=== PATIENT | female | born 1955 | race Caucasian/White ===

== ENCOUNTER → 2022-05-07 09:34 | Outpatient (CLI) | payer MEDICARE, OTHER, SELFPAY ==
--- NOTE | ~2022-05-07 | MR_ITS ---
EXAMINATION: MR knee RT wo con DATE: 05/07/2022 10:05 INDICATION: Right knee pain TECHNIQUE: Magnetic resonance imaging (MRI) of the right knee was performed without intravenous contr ast. Sequences included coronal PD-weighted FSE, coronal PD-weighted FS FSE, sagittal T2-weighted FS E, sagittal PD-weighted FS FSE and axial PD weighted fat saturated FSE. COMPARISON: None. FINDINGS: Medial compartment: Complex tear at the lateral side of the posterior root of the medial meniscus with a primary full-thi ckness radial tear plane and secondary tearing extending a short distance into more more medial poste rior horn. There is increased intrasubstance signal extending to the posterior body but which does no t appears to contact the articular surface which could represent mucoid degeneration. Partial-thickne ss chondral ulceration and deep chondral fissuring with underlying edema-like marrow signal change, c ystlike change and small central subchondral osteophyte along the lateral aspect of the anterior weig htbearing medial femoral condyle. Remaining cartilage appears relatively preserved. Lateral compartment: Lateral meniscus is normal. Mild chondral surface regularity along the medial aspect of the anterior weightbearing lateral femoral condyle and the central aspect. Lateral tibial plateau. Deep chondral f issure. Degenerative subchondral changes at the medial aspect of the lateral tibial plateau along the shoulder the intercondylar eminence. Patellofemoral compartment: Deep chondral ulceration and fissuring at the lateral patellar facet and apical ridge with small amou nt of underlying edema-like marrow signal change. Less severe partial thickness chondral fissuring at the medial facet. Deep chondral fissuring with minimal underlying cortical irregularity and edema-li ke signal change at the inferolateral aspect of the medial trochlea Ligaments and tendons: Anterior and posterior cruciate ligaments are normal. The medial collateral ligament and fibular ramy ateral ligament complex are normal. The extensor mechanism is normal. The visualized medial and later al hamstring tendons as well as the iliotibial band are normal. Fluid: Physiologic amount of fluid in the joint space. No loose osteochondral bodies identified. Osseous/other: Normal marrow signal separate previous noted small regions of degenerative subarticular signal change s. No fracture or pathologic marrow replacing process. IMPRESSION: 1. Complex tear at the posterior horn of the medial meniscus including full-thickness radial componen t. 2. Mild tricompartmental osteoarthritis with regions of high-grade chondromalacia in the medial and p atellofemoral compartments and moderate grade chondral malacia in the lateral compartment. Reviewed, dictated and finalized at location A. IMPRESSION: 1. Complex tear at the posterior horn of the medial meniscus including full-thi ckness radial component. 2. Mild tricompartmental osteoarthritis with regions of high-grade chondromalac ia in the medial and patellofemoral compartments and moderate grade chondral ma lacia in the lateral compartment.
== END ==
PROVIDERS: PCP Nurse Practitioner Family; Visit Provider Orthopaedic Surgery
DX: M25.561 Pain in right knee (principal); S83.231A Complex tear of medial meniscus, current injury, right knee, initial encounter; M17.11 Unilateral primary osteoarthritis, right knee; M94.261 Chondromalacia, right knee
CPT/HCPCS: 73721

== ENCOUNTER 2022-11-25 00:30 | Day surgery (SDC) | payer MEDICARE, SELFPAY ==
[2022-11-19 08:55] VITALS: BMI 29.9
[2022-11-25 07:16] VITALS: BP 139/84; PULSE 73; RESP 16; TEMP 36.4; O2SAT 100
--- NOTE | 2022-11-25 07:27 | WPDANESEPPF ---
Anes - Initial Pre Proc Eval Procedure: Operation Date: 11/25/22 08:30 Proposed Procedures p Colonoscopy - Edwin Dsouza MD Date/Time: 11/25/22 07:27 Surgeon: Edwin Dsouza MD Pre Op Diagnosis: hemorrhage anus/rectum Patient Data Age: 67 Gender: F Height: 1.68 m Weight: 84.6 kg Last Vital Signs Temp 36.4 C 11/25/22 07:16 Pulse 73 11/25/22 07:16 Resp 16 11/25/22 07:16 BP 139/84 11/25/22 07:16 Pulse Ox 100 11/25/22 07:16 O2 Del Method Room Air 11/25/22 07:16 Allergies Allergy/AdvReac Type Severity Reaction Status Date / Time No Known Allergies Allergy Verified 11/25/22 07:13 Home Medications Medication Instructions Recorded Confirmed Type aspirin 81 mg tablet,delayed 81 mg PO DAILY 07/22/20 11/25/22 History release calcium carbonate 600 mg-vitamin 1 cap PO DAILY 07/22/20 11/25/22 History D3 12.5 mcg (500 unit) capsule (Calcium 600 with Vitamin D3) fluticasone propionate 50 1 spray intranasal DAILY 07/22/20 11/25/22 History mcg/actuation nasal spray,suspension lisinopril 2.5 mg tablet 2.5 mg PO DAILY 07/22/20 11/25/22 History metoprolol tartrate 25 mg tablet 12.5 mg PO BID 07/22/20 11/25/22 History clopidogrel 75 mg tablet 75 mg PO DAILY 09/01/21 11/25/22 History ezetimibe 10 mg tablet 10 mg PO DAILY 09/01/21 11/25/22 History meloxicam 15 mg tablet 15 mg PO DAILY 10/14/22 11/25/22 History atorvastatin 80 mg tablet 40 mg PO EVERY OTHER DAY 11/19/22 11/25/22 History atorvastatin 80 mg tablet 80 mg PO EVERY OTHER DAY 11/19/22 11/25/22 History Patient hx anesthesia problems: none Family hx anesthesia problems: none Results Review: All pre-operative results and documents have been reviewed as part of the pre-operative evaluation. [facility] Past Medical History Medical History (Updated 11/25/22 @ 07:38 by Facundo Castillo DO) History of heart attack 2020 Hyperlipidemia Hypertension x2 Vaginal delivery Surgical History Surgical History (Updated 11/25/22 @ 07:38 by Facundo Castillo DO) H/O hernia repair H/O knee surgery History of colposcopy Hx of heart artery stent [id number] S/P bilateral hip replacements Family History Family History Other Family history of elevated blood lipids Hypertension Social History Social History (Updated 10/14/22 @ 10:23 by Charleen Norton CMA) Smoking status: Never smoker Second hand tobacco smoke exposure: No Alcohol intake: current Drinks per week: 10 Alcohol use details: GLASSES WINE Substance use: never Substance use type: does not use Lack of Transportation: No Lack of Food: Never True Current Housing: I Have Housing Concerned About Future Housing: No Difficulty Paying Gas/Electric Bills: No Difficulty Paying for Meds: No Currently Unemployed: No Education: Master's Degree or Higher Living arrangements: with family Spiritual care concerns: No Anes - Eval Final PreProcedure Day of Procedure 11/25/22 07:27 Patient weight: obese Heart: regular rate and rhythm Lungs: clear to auscultation Airway: Mallampati scale class II Neurological: alert and oriented Last oral intake: >/= 8 hours ASA classification: III Emergent: no Anesthetic plan: proceed Anesthesia type and monitoring: general GIVS and standard monitoring Results Review: All pre-operative results and documents have been reviewed as part of the pre-operative evaluation. Informed Consent: The patient's anesthetic plan and its attendant risks and benefits were discussed with the patient/family/POA. Questions were solicited and answers provided to the satisfaction of the patient/family/POA.
--- NOTE | 2022-11-25 07:27 | PM.HPGS ---
History of Present Illness History of Present Illness Consent: Risks, benefits, and alternatives have been discussed and questions answered. Patient agrees to proceed with procedure. Chief complaint: hemorrhage anus/rectum Narrative: Winston Samuels is a 67 year old female Presents for colonoscopy. Patient has had intermittent bright red blood per rectum for the last several months. She denies any associated abdominal pain. Bleeding has been less frequent over recent weeks. Patient does have a prior colonoscopy in 2016. Review of Systems Review of Systems: Review of systems noncontributory. [facility] Past Medical History Medical History Hyperlipidemia Hypertension x2 Vaginal delivery Surgical History Surgical History H/O hernia repair H/O knee surgery History of colposcopy Hx of heart artery stent S/P bilateral hip replacements Family History Family History Other Family history of elevated blood lipids Hypertension Social History Social History (Updated 10/14/22 @ 10:23 by Charleen Norton CMA) Smoking status: Never smoker Second hand tobacco smoke exposure: No Alcohol intake: current Drinks per week: 10 Alcohol use details: GLASSES WINE Substance use: never Substance use type: does not use Lack of Transportation: No Lack of Food: Never True Current Housing: I Have Housing Concerned About Future Housing: No Difficulty Paying Gas/Electric Bills: No Difficulty Paying for Meds: No Currently Unemployed: No Education: Master's Degree or Higher Living arrangements: with family Spiritual care concerns: No Meds Home Medications and Allergies Home Medications Medication Instructions Recorded Confirmed Type aspirin 81 mg tablet,delayed 81 mg PO DAILY 07/22/20 11/25/22 History release calcium carbonate 600 mg-vitamin 1 cap PO DAILY 07/22/20 11/25/22 History D3 12.5 mcg (500 unit) capsule (Calcium 600 with Vitamin D3) fluticasone propionate 50 1 spray intranasal DAILY 07/22/20 11/25/22 History mcg/actuation nasal spray,suspension lisinopril 2.5 mg tablet 2.5 mg PO DAILY 07/22/20 11/25/22 History metoprolol tartrate 25 mg tablet 12.5 mg PO BID 07/22/20 11/25/22 History clopidogrel 75 mg tablet 75 mg PO DAILY 09/01/21 11/25/22 History ezetimibe 10 mg tablet 10 mg PO DAILY 09/01/21 11/25/22 History meloxicam 15 mg tablet 15 mg PO DAILY 10/14/22 11/25/22 History atorvastatin 80 mg tablet 40 mg PO EVERY OTHER DAY 11/19/22 11/25/22 History atorvastatin 80 mg tablet 80 mg PO EVERY OTHER DAY 11/19/22 11/25/22 History Allergies Allergy/AdvReac Type Severity Reaction Status Date / Time No Known Allergies Allergy Verified 11/25/22 07:13 Vital Signs Vital Signs - 24 hr 11/25/22 07:16 Temperature 97.6 F Pulse Rate 73 Respiratory Rate 16 Blood Pressure 139/84 Pulse Oximetry 100 Oxygen Delivery Room Air Exam Narrative: Physical exam reveals patient to be alert. Vital signs stable. HEENT exam is unremarkable. Patient is anicteric. Lungs are clear to auscultation and percussion. Heart is without murmur or extra sounds. Abdomen bowel sounds are present soft nontender with no organomegaly. Digital external rectal exam is normal. Assessment and Plan Assessment and plan (1) Rectal bleeding: Code(s): K62.5 - Hemorrhage of anus and rectum Status: Acute Assessment and Plan: Patient with intermittent rectal bleeding over the last several months. Colonoscopy will be performed to evaluate more thoroughly. High-fiber diet is advised. Further recommendations may be given after endoscopy.
[2022-11-25] MEDS: LACTATED RINGERS 1,000 ML 150 ML IV CONT (07:29)
[2022-11-25 08:30] VITALS: BP 135/91; PULSE 79; RESP 23; TEMP 36.4; O2SAT 100
[2022-11-25 08:40] VITALS: BP 141/90; PULSE 69; RESP 20; TEMP 36.4; O2SAT 100
[2022-11-25 08:50] VITALS: BP 147/96; PULSE 67; RESP 18; TEMP 36.4; O2SAT 100
--- NOTE | 2022-11-25 08:53 | SUR.PHASEII ---
Dr. Dsouza instructed pt. to resume Plavix tomorrow, 11/26/22. Pt. verbalized understanding.
== END 2022-11-25 08:56 | disposition home or self-care (01) ==
PROVIDERS: PCP Nurse Practitioner Family; Visit Provider Internal Medicine Gastroenterology
PROC: 0DJD8ZZ Inspection of Lower Intestinal Tract, Via Natural or Artificial Opening Endoscopic (ICD-10-PCS; CPT 45378; principal; 2022-11-25 08:30)
DX: K62.5 Hemorrhage of anus and rectum (principal); D12.3 Benign neoplasm of transverse colon; K57.30 Diverticulosis of large intestine without perforation or abscess without bleeding; K64.8 Other hemorrhoids; I10 Essential (primary) hypertension; E78.5 Hyperlipidemia, unspecified; I25.2 Old myocardial infarction; Z95.5 Presence of coronary angioplasty implant and graft; E66.9 Obesity, unspecified; Z68.30 Body mass index [BMI] 30.0-30.9, adult; Z79.82 Long term (current) use of aspirin
CPT/HCPCS: 45380; 88305; J2704; J7120